=== PATIENT | male | born 1950 | race Caucasian/White ===

== ENCOUNTER → 2021-02-05 | Outpatient (CLI) | payer OTHER ==
[~2021-02-05] MED LIST: ASPI81CH33 PO; B-12100020 PO; B-12100T2 PO; D31000TA PO; ECOT81TA5 PO; ENTR1TAB PO; FERR32TA PO; FISH1000 PO; IRON65TA2 PO; META0.52 PO; METO1TAB7 PO; METO200T28 PO; QC F0.52 PO; ROSU40TA4 PO; TEGR1TAB PO; WARF-22 PO; WARF-23 PO
== END ==
LOC: M LABSMTC 09:33
PROVIDERS: ATTEND Anesthesiology
DX: Z01.812 Encounter for preprocedural laboratory examination (principal); Z20.822 Contact with and (suspected) exposure to COVID-19

== ENCOUNTER 2021-02-10 08:58 | Day surgery (SDC) | payer OTHER ==
[~2021-02-10] VITALS: Ht 172.7 cm; Wt 81.6 kg
[~2021-02-10 08:58] MED LIST changes: +NS 1,000 ML IV ONE
[2021-02-10] MEDS ORDERED: propofoL 500 MG/50 ML VIAL As Ordered ONE (09:41)
[2021-02-10] MEDS ORDERED: LIDOCAINE 2% 100MG/5ML SDV (FOR ANES.) As Ordered ONE (09:41)
--- NOTE | 2021-02-10 10:01 | ROOR ---
Patient Name: Juan C Wagoner Procedure Date: 02/10/2021 9:38 AM Date of : 1950 Age: 71 Room: [facility] Gender: Male Note Status: Finalized Procedure: Total Colonoscopy to Cecum Indications: Screening for colorectal malignant neoplasm Providers: Vishal Schaffer MD Referring MD: Romero Salguero MD Requesting Provider: Medicines: Monitored Anesthesia Care Complications: No immediate complications. Procedure: Pre-Anesthesia Assessment: - The heart rate, respiratory rate, oxygen saturations, blood pressure, adequacy of pulmonary ventilation, and response to care were monitored throughout the procedure. The Colonoscope was introduced through the anus and advanced to the cecum, identified by appendiceal orifice and ileocecal valve. The colonoscopy was performed without difficulty. The patient tolerated the procedure well. The quality of the bowel preparation was good. Findings: The perianal and digital rectal examinations were normal. Non-bleeding internal hemorrhoids were found during retroflexion. The hemorrhoids were small and Grade I (internal hemorrhoids that do not prolapse). Scattered small-mouthed diverticula were found in the recto-sigmoid colon, sigmoid colon and descending colon. The exam was otherwise without abnormality on direct and retroflexion views. Impression: - Non-bleeding internal hemorrhoids. - Diverticulosis in the recto-sigmoid colon, in the sigmoid colon and in the descending colon. - The examination was otherwise normal on direct and retroflexion views. - No specimens collected. - The exam was otherwise normal to the cecum. Recommendation: - Patient has a contact number available for emergencies. The signs and symptoms of potential delayed complications were discussed with the patient. Return to normal activities tomorrow. Written discharge instructions were provided to the patient. - High fiber diet. - Discharge patient to home. - Continue present medications. - Repeat colonoscopy is not recommended due to current age (66 years or older) for screening purposes. - Return to referring physician. - The findings and recommendations were discussed with the patient. Procedure Code(s): --- Professional --- 75873, Colonoscopy, flexible; diagnostic, including collection of specimen(s) by brushing or washing, when performed (separate procedure) Diagnosis Code(s): --- Professional --- Z12.11, Encounter for screening for malignant neoplasm of colon K64.0, First degree hemorrhoids K57.30, Diverticulosis of large intestine without perforation or abscess without bleeding CPT copyright 2019 [employer]. All rights reserved. The codes documented in this report are preliminary and upon unclaimed property officer review may be revised to meet current compliance requirements. Vishal Schaffer MD Vishal Schaffer MD 02/10/2021 10:00:53 AM Electronically signed by Vishal Schaffer MD Number of Addenda: 0 Note Initiated On: 02/10/2021 9:38 AM Estimated Blood Loss: Estimated blood loss: none.
[2021-02-10 10:20] VITALS: BP 114/61
== END 2021-02-10 10:32 | disposition home or self-care (01) ==
LOC: M OPP 08:58
PROVIDERS: ATTEND Internal Medicine Gastroenterology
DX: Z12.11 Encounter for screening for malignant neoplasm of colon (principal); K57.30 Diverticulosis of large intestine without perforation or abscess without bleeding; K64.0 First degree hemorrhoids; Z95.0 Presence of cardiac pacemaker; Z79.82 Long term (current) use of aspirin; Z79.01 Long term (current) use of anticoagulants; Z79.899 Other long term (current) drug therapy; Z87.891 Personal history of nicotine dependence

== ENCOUNTER 2021-08-07 07:23 | Inpatient (IN) | payer OTHER ==
[~2021-08-07] VITALS: Ht 175.3 cm; Wt 78.6 kg
[~2021-08-07 07:23] MED LIST changes: -NS 1,000 ML IV ONE
--- NOTE | 2021-08-07 11:39 | REP ---
INDICATION: contipation. COMPARISON: None. TECHNIQUE: Three views including upright chest radiograph. FINDINGS: Upright chest radiograph shows a unipolar pacemaker via the left side. Cardiomegaly is observed. There is a granulomatous calcification in the left upper perihilar region adjacent to the power plant for the pacemaker. Pulmonary vasculature is not increased. There is no evidence of pleural effusion, infiltrate, or free subdiaphragmatic air. Old post traumatic deformity is seen in the right clavicle. Supine and erect views of the abdomen show a normal bowel gas pattern. There is a minimal amount of air and stool in the proximal colon. There is no radiographic evidence of obstipation. No air-fluid level is seen. Psoas margins and flank stripes appear to be intact. Some vascular calcification is observed in the pelvis and inguinal regions. IMPRESSION: Cardiomegaly with pacemaker. Vascular calcification in the abdomen. Normal bowel gas pattern. <Electronically signed by Jacques Saldana > 08/07/21 2039
[2021-08-07 11:48] LABS: BASO # 0.1 10^3/uL (0.0-0.2); BASO % 0.7 % (0.0-1.0); EOS # 0.1 10^3/uL (0.0-0.5); EOS % 0.6 % (0.0-3.0); HEMATOCRIT 51.1 % (42.0-52.0); HEMOGLOBIN 16.6 g/dl (13.5-17.5); LYMPH # 2.7 10^3/uL (1.5-5.0); LYMPH % 30.5 % (24.0-44.0); MEAN CORPUSCULAR HEMOGLOBIN 33.6 pg (27.0-33.0); MEAN CORPUSCULAR HGB CONC 32.5 g/dl (32.0-36.5); MEAN CORPUSCULAR VOLUME 103.4 fl (80.0-96.0); MONO # 0.9 10^3/uL (0.0-0.8); MONO % 10.5 % (2.0-8.0); NEUTROPHILS # 5.1 10^3/uL (1.5-8.5); NEUTROPHILS % 57.5 % (36.0-66.0); PLATELET COUNT, AUTOMATED 136 10^3/uL (150-450); RED BLOOD COUNT 4.94 10^6/uL (4.30-6.10); WHITE BLOOD COUNT 8.8 10^3/uL (4.0-10.0)
[2021-08-07 12:17] LABS: ALBUMIN 3.5 GM/DL (3.2-5.2); BILIRUBIN,DIRECT 0.3 MG/DL (0.0-0.2); BILIRUBIN,TOTAL 0.7 MG/DL (0.2-1.0); CK-MB VALUE MASS 4.9 NG/ML (<3.6); MB/CK RELATIVE INDEX 2.38 (< OR =4); TOTAL PROTEIN 6.8 GM/DL (6.4-8.2); TROPONIN I 0.23 NG/ML (< 0.10)
[2021-08-07] MEDS ORDERED: ISOVUE-370 76% 100ML VIAL As Ordered ONE (12:33)
--- NOTE | 2021-08-07 13:10 | REP ---
INDICATION: dyspnea. COMPARISON: None. TECHNIQUE: Contrast dose: 100 ML of Isovue [address] technique: Helical scanning is acquired and overlapping 1.5 mm and contiguous 3 mm axial images are reformatted. In addition, maximum intensity projection and multiplanar re-formation images are generated in sagittal and coronal imaging projections. FINDINGS: There is good opacification in the pulmonary arterial tree. There is 1 tiny intraluminal filling defect in the right lower lobe pulmonary artery, anterobasilar segment consistent with a single visible small pulmonary embolus. No other emboli seen. The right ventricle right atrium are dilated. The vena cava and hepatic veins are somewhat dilated and reflux with contrast opacified blood. These findings are consistent with significant right heart failure. There is relatively poor opacification of the aorta. No aneurysm is seen. There are small bilateral pleural effusions, right greater than left. The left ventricle and left atrium appear to be enlarged and there is extensive left coronary artery vascular calcification. There is some myocardial calcification at the left ventricular apex consistent with old myocardial infarction. A pacemaker is seen in the right heart view of the left side. There is no evidence of pericardial effusion. No hilar mass or adenopathy is seen. Lung window settings demonstrate a granulomatous calcification in the left upper lobe. No significant pulmonary nodule is seen. There is fissural thickening in the major fissures bilaterally. No infiltrate seen. In the upper abdomen, there are scattered granulomatous calcifications in the spleen. IMPRESSION: There is a single tiny filling defect in the right lower lobe pulmonary arterial tree consistent with a a tiny pulmonary embolus. Evidence of right heart failure with prominent inferior vena cava and, hepatic veins, and reflux of contrast opacified blood from the right atrium into the liver. Four-chamber cardiomegaly is observed. Small bilateral pleural effusions consistent with CHF. <Electronically signed by Jacques Saldana > 08/07/21 [id number]
--- NOTE | 2021-08-07 13:18 | REP ---
INDICATION: abd pain COMPARISON: None. TECHNIQUE: CT Scan of the abdomen and pelvis was performed with intravenous administration of 100 cc of Isovue 370, without oral contrast. Sagittal and coronal reconstruction images are performed. FINDINGS: Lung bases: There is cardiomegaly. There is a moderate right pleural effusion. There is a tiny left pleural effusion. Injected IV contrast is predominantly in the right side of the heart with reflux into the inferior vena cava and hepatic veins. Liver: No abnormality visualized. Gallbladder: Unremarkable. Spleen: Tiny calcified granulomas are seen scattered throughout the spleen. Adrenals: Normal. Pancreas: No abnormalities seen. 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 Otherwise no definite renal abnormality is seen bilaterally. Small and large bowel: Unremarkable. Free fluid: There is mild free fluid in the pelvis. Abdominal aorta: No aneurysm, injected intravenous contrast has not reached the abdominal aorta and therefore I cannot evaluate for dissection. Adenopathy: None. Appendix: Not inflamed. Osseous structures: There are mild degenerative changes of the spine. Pelvis: No mass. IMPRESSION: Cardiomegaly with moderate right pleural fluid and tiny amount of left pleural fluid. Injected IV contrast is predominantly in the right side of the heart with reflux into the inferior vena cava and hepatic veins, compatible with some degree of right heart failure. There is mild free fluid in the pelvis. Injected IV contrast has not significantly reach the abdominal aorta and therefore the CT of the abdomen and pelvis is somewhat limited. <Electronically signed by Rich Chávez > 08/07/21 [id number]
[2021-08-07 14:37] LABS: CK-MB VALUE MASS 4.9 NG/ML (<3.6); MB/CK RELATIVE INDEX 2.55 (< OR =4); TROPONIN I 0.22 NG/ML (< 0.10)
[2021-08-07] MEDS ORDERED: MAALOX 30 ML SUSP *UDC PO PRN (15:45)
[2021-08-07] MEDS ORDERED: MOM 30ML SUSPENSION UDC PO PRN (15:45)
[2021-08-07] MEDS ORDERED: ACETAMINOPHEN TAB 650MG DOSE (2X325MG) PO PRN (15:45)
[2021-08-07] MEDS ORDERED: COLA100C5 PO (15:47)
[2021-08-07] MEDS ORDERED: CARB400T4 PO (15:47)
[2021-08-07] MEDS ORDERED: B-12100021 PO (15:47)
[2021-08-07] MEDS ORDERED: SIME80CH6 PO (15:47)
[2021-08-07] MEDS ORDERED: D31000TA2 PO (15:47)
[2021-08-07] MEDS ORDERED: WARF-23 PO (15:47)
[2021-08-07] MEDS ORDERED: FISH1000 PO (15:47)
[2021-08-07] MEDS ORDERED: HOME MED LIST COMPLETE! XX SCH (15:50)
--- NOTE | 2021-08-07 16:00 | HPEPDOC ---
[facility] Medical History & Physical Date of Admission Aug 07, 2021 Date of Service: Aug 07, 2021 History and Physical Chief complaint: Who presented to the hospital. Reports of abdominal pain and constipation History of present illness: Patient is a 71-year-old male who presented to the emergency room with concerns of abdominal pain, constipation for the last few days. Patient reported that ever since his colonoscopy in March 2021. He has been experiencing intermittent abdominal discomfort. Today. Patient has reported some associated shortness of breath, which has been worsening over the last 2 weeks. He denies any chest pain or palpitations. Denies any significant cough. Denies any recent fevers, chills or lower extremity edema. Reports that his weight has been fairly consistent. Patient does report that he used to sleep and require however, he can lay flat. He does report waking up frequently at night because of shortness of breath. Patient denies any nausea, vomiting. Reports that earlier he was experiencing lower abdominal discomfort described as a pressure-like intensity, occurring intermittently and aggravated with food. No alleviating factors. Patient reports that his last bowel movement was this morning which was very small. Denies any urinary discomfort. Patient worked with appetite is fairly normal and his weight has been relatively consistent between 171 and 173 pounds. Patient reports that he has received a cardiac catheterization approximately 9 years ago and did not require any stenting. He has since received a nuclear stress test approximately 1 year ago at the [facility]. 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); on Coumadin Suspected Systolic CHF s/p AICD (Placed in 2017) HTN DLP Seizure disorder Past Surgical History: Left inguinal hernia repair 2 Allergies: See below Medications: See below Family History: - Reviewed and noncontributory Social History: - Denies the use of illicit drugs; patient reports that he quit smoking 27 years ago, was a smoker of 30 years at 1-2 PPD; patient reports social alcohol use - Patient has received both doses of Moderna Vaccine March - Denies recent travel or sick contacts - Lives with - 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; 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 Review of Systems: 10 point review of systems complete, all negative otherwise stated in HPI Physical exam: - Vitals: BP [115/84], HR [97], RR [18], Sat [100%RA], Temp [97.2F] - General: Lying in bed, No acute distress, Speaking in full sentences, AAOx3 - HEENT: NC, AT, PERRLA - CVS: RRR, +S1S2 - Lungs: Diminished lung sounds bilaterally, Faint crackles, No wheezing / rhonchi - Abdomen: Soft, Non-distended, Non-tender - Extremities: Trace LE edema, No calf tenderness - Neuro: No focal motor or sensory deficit - Skin: No visible rashes Labs: See below Imaging: CXR 08/07: Cardiomegaly with pacemaker. Vascular calcification in the abdomen. Normal bowel gas pattern. CT abdomen / pelvis 08/07: Cardiomegaly with moderate right pleural fluid and tiny amount of left pleural fluid. Injected IV contrast is predominantly in the right side of the heart with reflux into the inferior vena cava and hepatic veins, compatible with some d egree of right heart failure. There is mild free fluid in the pelvis. Injected IV contrast has not significantly reach the abdominal aorta and therefore the CT of the abdomen and pelvis is somewhat limited. CTA chest 08/07: There is a single tiny filling defect in the right lower lobe pulmonary arterial tree consistent with a tiny pulmonary embolus. Evidence of right heart failure with prominent inferior vena cava and, hepatic veins, and reflux of contrast opacified blood from the right atrium into the liver. Four-chamber cardiomegaly is observed. Small bilateral pleural effusions consistent with CHF. EKG: See below Assessment and Plan: Shortness of breath - likely 2/2 decompensated CHF - Patient presented to the ER with shortness of breath - Physical reveals diminished lung sounds at bilateral lower lung bases with faint crackles - Elevated BNP - Imaging noted above - Will check ECHO / Troponin trend / Telemetry - Strict ins/outs, Daily weights, Fluid restriction - Will start Furosemide 40 IV BID Tiny PE? - Currently patient denies any chest pain or palpitations - Saturating well on room air and 99% - Imaging noted above - Will check INR - Hypercoagubility workup pending - Patient is already on full anticoagulation with Coumadin CAD (Reported silent [place] ~26 years ago) - Patient currently denies any chest pain, palpitations, nausea or diaphoresis - Patient reported that he didnt require stenting in the past - Has received a cardiac catheterization approximately 9 years ago, no stenting was required - Nuclear stresses completed approximately one year ago was reported negative - EKG reviewed - Troponin slightly elevated; possibly 2/2 demand ischemia - Will follow troponin trend - c/w ASA and Rosuvastatin 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) - Will check INR - c/w Coumadin Suspected Systolic CHF - s/p AICD (Placed in 2018) - See above HTN - BP well controlled - Will hold Entresto for now (re: Starting diuresis) - c/w Metoprolol DLP - c/w Rosuvastatin and Cadott-3 fatty acids Seizure disorder - c/w Carbamazepine DVT prophylaxis - Will c/w Coumadin (Will check INR) Vital Signs Vital Signs Date Time Temp Pulse Resp B/P (MAP) Pulse Ox O2 Delivery O2 Flow Rate FiO2 08/07/21 12:48 97 18 115/84 (94) 100 Room Air 08/07/21 07:24 97.2 Laboratory Data Labs 24H Laboratory Tests 2 08/07/21 11:18: Immature Granulocyte % (Auto) 0.2, Neutrophils (%) (Auto) 57.5, Lymphocytes (%) (Auto) 30.5, Monocytes (%) (Auto) 10.5H, Eosinophils (%) (Auto) 0.6, Basophils (%) (Auto) 0.7, Neutrophils # (Auto) 5.1, Lymphocytes # (Auto) 2.7, Monocytes # (Auto) 0.9H, Eosinophils # (Auto) 0.1, Basophils # (Auto) 0.1, Nucleated Red Blood Cells % (auto) 0.0 08/07/21 11:29: Total Bilirubin 0.7, Direct Bilirubin 0.3H, Aspartate Amino Transf (AST/SGOT) 56H, Alanine Aminotransferase (ALT/SGPT) 58, Alkaline Phosphatase 95, Total Creatine Kinase 206, Creatine Kinase MB 4.9H, Creatine Kinase MB Relative Index 2.38, Troponin I 0.23H, Total Protein 6.8, Albumin 3.5, Albumin/Globulin Ratio 1.1, Lipase 85 08/07/21 11:38: POC Glucose (Misc Panel) 107H, POC Sodium (Misc Panel) 144, POC Potassium (Misc Panel) 4.5, POC Chloride (Misc Panel) 108, POC Total CO2 (Misc Panel) 21.0L, POC Blood Urea Nitrogen (Misc Panel 33H, POC Ionized Calcium (Misc Panel) 4.2L, POC Creatinine (Misc Panel) 1.1, POC Hematocrit (Misc Panel) 52.0H 08/07/21 13:51: Total Creatine Kinase 192, Creatine Kinase MB 4.9H, Creatine Kinase MB Relative Index 2.55, Troponin I 0.22H, AA-Hbv-I-Type Natriuretic Peptide 43856L 08/07/21 15:39: CBC/BMP Laboratory Tests 08/07/21 11:18 Home Medications Scheduled Aspirin (Ecotrin) 81 Mg Tablet.dr, 81 MG PO DAILY Carbamazepine (Carbamazepine ER) 400 Mg Tab.er.12h, 400 MG PO BID Cholecalciferol (Vitamin D3) (Vitamin D3) 1,000 Unit Tablet, 1,000 UNITS PO DAILY Cyanocobalamin (Vitamin B-12) (B-12) 1,000 Mcg Tablet, 1,000 MCG PO BID Docusate Sodium (Colace) 100 Mg Capsule, 100 MG PO QHS Metoprolol Succinate (Metoprolol Succinate) 200 Mg Tab.er.24h, 100 MG PO DAILY Cadott-3 Fatty Acids/Fish Oil (Fish Oil 1,000 mg Capsule) 1 Each Capsule, 2,000 MG PO QAM Cadott-3 Fatty Acids/Fish Oil (Fish Oil 1,000 mg Capsule) 1 Each Capsule, 1,000 MG PO QHS Psyllium Husk (Fiber) 0.52 Gm Capsule, 2 CAP PO BID Rosuvastatin Calcium (Rosuvastatin Calcium) 40 Mg Tablet, 40 MG PO QPM Sacubitril/Valsartan (Entresto 24 mg-26 mg Tablet) 1 Each Tablet, 1 TAB PO BID Simethicone (Simethicone) 80 Mg Tab.chew, 80 MG PO DAILY Warfarin Sodium (Warfarin Sodium) 5 Mg Tablet, 10 MG PO QPM Allergies Coded Allergies: No Known Allergies (Unverified , 02/03/21) EDILBERTO FISHER MD Aug 07, 2021 16:00
[2021-08-07 16:21] LABS: PROTHROMBIN TIME 55.5 SECONDS (12.7-14.5)
[2021-08-07 16:22] LABS: PARTIAL THROMBOPLASTIN TIME 64.1 SECONDS (25.9-37.0)
[2021-08-07 16:58] LABS: INR 6.31
[2021-08-07] MEDS: FUROSEMIDE 40MG/4ML VIAL (J1940) IV SCH (17:00)
[2021-08-07] MEDS ORDERED: WARFARIN SOD 5MG TAB PO SCH (17:00)
[2021-08-07 17:18] LABS: RSV AMPLIFICATION NEGATIVE (NEGATIVE)
[2021-08-07] MEDS ORDERED: PHYTONADIONE 2.5 MG **1/2 TAB PO ONE (17:35)
--- NOTE | 2021-08-07 18:59 | ECGEPIP ---
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
[2021-08-07 19:18] LABS: CK-MB VALUE MASS 4.9 NG/ML (<3.6); MB/CK RELATIVE INDEX 2.15 (< OR =4); TROPONIN I 0.23 NG/ML (< 0.10)
[2021-08-07] MEDS ORDERED: DOCUSATE SODIUM 100MG CAPSULE PO SCH (21:00)
[2021-08-08] MEDS: CYANOCOBALAMIN 500 MCG TAB PO SCH ×3 (00:11→20:02)
[2021-08-08] MEDS: ROSUVASTATIN 10 MG TAB (CRESTOR) PO SCH ×2 (00:11→20:03)
[2021-08-08] MEDS: DOCUSATE SODIUM 100MG CAPSULE PO SCH ×3 (00:11→20:03)
[2021-08-08] MEDS: carBAMazepine XR 200 MG TAB PO SCH ×3 (00:12→20:03)
[2021-08-08] MEDS: OMEGA-3 1000MG CAPSULE PO SCH ×3 (00:13→20:03)
[2021-08-08 01:50] LABS: CK-MB VALUE MASS 5.2 NG/ML (<3.6); MB/CK RELATIVE INDEX 1.9 (< OR =4); TROPONIN I 0.24 NG/ML (< 0.10)
[2021-08-08 04:00] VITALS: BP 121/87
[2021-08-08 05:32] LABS: BASO % 0.7 % (0.0-1.0); EOS # 0.1 10^3/uL (0.0-0.5); EOS % 1.4 % (0.0-3.0); HEMATOCRIT 45.2 % (42.0-52.0); HEMOGLOBIN 14.9 g/dl (13.5-17.5); LYMPH # 1.5 10^3/uL (1.5-5.0); LYMPH % 26.5 % (24.0-44.0); MEAN CORPUSCULAR HEMOGLOBIN 33.8 pg (27.0-33.0); MEAN CORPUSCULAR VOLUME 102.5 fl (80.0-96.0); MONO # 0.7 10^3/uL (0.0-0.8); MONO % 12.5 % (2.0-8.0); NEUTROPHILS # 3.4 10^3/uL (1.5-8.5); NEUTROPHILS % 58.4 % (36.0-66.0); PLATELET COUNT, AUTOMATED 117 10^3/uL (150-450); RED BLOOD COUNT 4.41 10^6/uL (4.30-6.10); WHITE BLOOD COUNT 5.8 10^3/uL (4.0-10.0)
[2021-08-08 05:34] LABS: INR 4.14; PROTHROMBIN TIME 40.3 SECONDS (12.7-14.5)
[2021-08-08 05:45] LABS: BLOOD UREA NITROGEN 32 MG/DL (7-18); CALCIUM LEVEL 8.7 MG/DL (8.8-10.2); CARBON DIOXIDE LEVEL 23 MEQ/L (21-32); CHLORIDE LEVEL 111 MEQ/L (98-107); CREATININE FOR GFR 1.13 MG/DL (0.70-1.30); GLOMERULAR FILTRATION RATE > 60.0 (>42); GLUCOSE, FASTING 92 MG/DL (70-100); MAGNESIUM LEVEL 2.1 MG/DL (1.8-2.4); POTASSIUM SERUM 4.5 MEQ/L (3.5-5.1); SODIUM LEVEL 143 MEQ/L (136-145)
[2021-08-08 08:00] VITALS: BP 108/71
[2021-08-08] MEDS: METOPROLOL SUCC (TopROL XL) 100MG *XL* TAB PO SCH (08:30)
[2021-08-08] MEDS: SIMETHICONE 80MG CHEW TAB PO SCH (08:31)
[2021-08-08] MEDS: VITAMIN D 1,000 INTERNATIONAL UNITS TABLET PO SCH (08:32)
[2021-08-08] MEDS: ASPIRIN 81MG ENTERIC TABLET PO SCH (08:32)
[2021-08-08] MEDS: FUROSEMIDE 40MG/4ML VIAL (J1940) IV SCH ×2 (08:32→16:58)
[2021-08-08] MEDS ORDERED: FLUBLOK(EGG FREE)(QUAD)INFLUENZA VACC 0.5ML SYRINGE 18YRS & OLDER IM ONE (09:00)
--- NOTE | 2021-08-08 10:17 | IPNPDOC ---
Text Note Date of Service The patient was seen on 08/08/21. NOTE Subjective: Patient is a 71-year-old male who presented to the emergency room with concerns of abdominal pain, constipation for the last few days. Patient reported that ever since his colonoscopy in March 2021. He has been experiencing intermittent abdominal discomfort. Today, patient has reported some associated shortness of breath, which has been worsening over the last 2 weeks. He denies any chest pain or palpitations. Denies any significant cough. Denies any recent fevers, chills or lower extremity edema. Reports that his weight has been fairly consistent. In the emergency room, patient was found to have imaging consistent with bilateral pleural effusions and vascular. Patient has been admitted to the hospital service for further evaluation and treatment of CHF. Patient was seen and examined at the bedside. Currently patient denies any chest pain, shortness of breath or palpitations. Denies any nausea, vomiting, abdominal pain or diarrhea. Yesterday. Patient did not receive any diuretics because of hold parameters given his blood pressure. Objective: Vitals (See below) General: Lying in bed, appears comfortable, AAOx3 HEENT: NC, AT CVS: +S1S2 Lungs: Diminished lung sounds at bases, faint crackles, no rhonchi or wheezing is appreciated Abdomen: Soft, nondistended, nontender Extremities: Trace pitting edema bilaterally Imaging: CXR 08/07: Cardiomegaly with pacemaker. Vascular calcification in the abdomen. Normal bowel gas pattern. CT abdomen / pelvis 08/07: Cardiomegaly with moderate right pleural fluid and tiny amount of left pleural fluid. Injected IV contrast is predominantly in the right side of the heart with reflux into the inferior vena cava and hepatic veins, compatible with some degree of right heart failure. There is mild free fluid in the pelvis. Injected IV contrast has not significantly reach the abdominal aorta and therefore the CT of the abdomen and pelvis is somewhat limited. CTA chest 08/07: There is a single tiny filling defect in the right lower lobe pulmonary arterial tree consistent with a tiny pulmonary embolus. Evidence of right heart failure with prominent inferior vena cava and, hepatic veins, and reflux of contrast opacified blood from the right atrium into the liver. Four-chamber cardiomegaly is observed. Small bilateral pleural effusions consistent with CHF. Assessment and Plan: Shortness of breath - likely 2/2 decompensated CHF - Patient presented to the ER with shortness of breath - Physical still reveals crackles - Elevated BNP - Imaging noted above - ECHO Pending - c/w Telemetry - c/w Strict ins/outs, Daily weights, Fluid restriction - c/w Furosemide 40 IV BID; hold parameters have been adjusted Tiny PE? - Currently patient denies any chest pain or palpitations - Saturating well on room air and 99% - Imaging noted above - Hypercoagubility workup pending - Patient is already on full anticoagulation with Coumadin as an outpatient; INR supra-therapeutic Supra-therapeutic INR - s/p Vitamin K 2.5 mg - INR improving - Will continue to hold Coumadin - Will likely resume tomorrow CAD (Reported silent [place] ~26 years ago) - Patient currently denies any chest pain, palpitations, nausea or diaphoresis - Reported no prior stenting in the past - Has received a cardiac catheterization approximately 9 years ago, no stenting was required - Nuclear stresses completed approximately one year ago was reported negative - EKG reviewed - Troponin slightly elevated; possibly 2/2 demand ischemia - remains stable - c/w ASA and Rosuvastatin 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9 85 18 97 Room Air I&O- Last 24 Hours up to 6 AM 08/08/21 06:00 Intake Total 120 ml Output Total 1 ml Balance 119 ml EDILBERTO FISHER MD Aug 08, 2021 10:17
[2021-08-08 12:00] VITALS: BP 123/77
[2021-08-08 16:00] VITALS: BP 122/81
[2021-08-08 20:00] VITALS: BP 103/69
[2021-08-09] VITALS: BP 104/72
[2021-08-09 04:00] VITALS: BP 114/76
[2021-08-09 04:42] LABS: BASO # 0.1 10^3/uL (0.0-0.2); EOS # 0.1 10^3/uL (0.0-0.5); EOS % 2.6 % (0.0-3.0); HEMATOCRIT 41.5 % (42.0-52.0); HEMOGLOBIN 13.9 g/dl (13.5-17.5); LYMPH # 1.6 10^3/uL (1.5-5.0); LYMPH % 30.8 % (24.0-44.0); MEAN CORPUSCULAR HEMOGLOBIN 33.3 pg (27.0-33.0); MEAN CORPUSCULAR HGB CONC 33.5 g/dl (32.0-36.5); MEAN CORPUSCULAR VOLUME 99.5 fl (80.0-96.0); MONO # 0.6 10^3/uL (0.0-0.8); MONO % 11.1 % (2.0-8.0); NEUTROPHILS # 2.7 10^3/uL (1.5-8.5); NEUTROPHILS % 54.1 % (36.0-66.0); PLATELET COUNT, AUTOMATED 102 10^3/uL (150-450); RED BLOOD COUNT 4.17 10^6/uL (4.30-6.10)
[2021-08-09 04:46] LABS: INR 1.57; PROTHROMBIN TIME 19.2 SECONDS (12.7-14.5)
[2021-08-09 05:04] LABS: BLOOD UREA NITROGEN 29 MG/DL (7-18); CALCIUM LEVEL 8.3 MG/DL (8.8-10.2); CARBON DIOXIDE LEVEL 25 MEQ/L (21-32); CHLORIDE LEVEL 115 MEQ/L (98-107); CREATININE FOR GFR 0.86 MG/DL (0.70-1.30); GLOMERULAR FILTRATION RATE > 60.0 (>42); GLUCOSE, FASTING 88 MG/DL (70-100); MAGNESIUM LEVEL 1.8 MG/DL (1.8-2.4); POTASSIUM SERUM 3.9 MEQ/L (3.5-5.1); SODIUM LEVEL 148 MEQ/L (136-145)
[2021-08-09] MEDS ORDERED: FURO20TA2 PO (07:50)
[2021-08-09 08:00] VITALS: BP 117/81
--- NOTE | 2021-08-09 09:42 | DS.PDOC ---
Discharge Summary General Date of Admission Aug 07, 2021 at 15:44 Date of Discharge 08/09/2021 Discharge Summary PROCEDURES PERFORMED DURING STAY: [None]. ADMITTING DIAGNOSES / DISCHARGE DIAGNOSES: s/p Shortness of breath - likely 2/2 decompensated CHF Tiny PE; less likely s/p Supra-therapeutic INR CAD (Reported silent MO ~26 years ago) 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) Suspected Systolic CHF HTN DLP Seizure disorder DVT prophylaxis COMPLICATIONS/CHIEF COMPLAINT: SOB / Abdominal bloating HISTORY OF PRESENT ILLNESS: s/p Shortness of breath - likely 2/2 decompensated CHF - Patient has reported improvement of her shortness of breath/abdominal bloating - Physical with resolution of crackles - Elevated BNP - Imaging noted above - ECHO complete; report pending - c/w Telemetry - c/w Strict ins/outs, Daily weights, Fluid restriction - Will discharge home with low-dose diuretics - Patient has been advised to 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 within the next 7 days Tiny PE; less likely - Denies any chest pain, shortness breath, palpitations - Again is saturating well on room air at 99% - Imaging noted above - Hypercoagubility workup pending - c/w Coumadin - Will have outpatient follow-up with primary care provider within the next 7 days s/p Supra-therapeutic INR - s/p Vitamin K 2.5 mg - Will have outpatient INR completed in the next 2-3 days - Will resume Coumadin CAD (Reported silent MO ~26 years ago) - Patient currently denies any chest pain, palpitations, nausea or diaphoresis - Reported no prior stenting in the past - Has received a cardiac catheterization approximately 9 years ago, no stenting was required - Nuclear stresses completed approximately one year ago was reported negative - EKG reviewed - Troponin slightly elevated; possibly 2/2 demand ischemia - remains stable - c/w ASA and Rosuvastatin 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) - Will outpatient follow-up with primary care provider for repeat INR - Will resume Coumadin Suspected Systolic CHF - s/p AICD (Placed in 2018) - See above HTN - BP well controlled - Will resume Entresto on discharge - c/w Metoprolol DLP - c/w Rosuvastatin and [place]-3 fatty acids Seizure disorder - c/w Carbamazepine DVT prophylaxis - Will resume Coumadin HOSPITAL COURSE: Patient is a 71-year-old male who presented to the emergency room with concerns of abdominal pain, constipation for the last few days. Patient reported that ever since his colonoscopy in March 2021. He has been experiencing intermittent abdominal discomfort. Today, patient has reported some associated shortness of breath, which has been worsening over the last 2 weeks. He denies any chest pain or palpitations. Denies any significant cough. Denies any recent fevers, chills or lower extremity edema. Reports that his weight has been fairly consistent. In the emergency room, patient was found to have imaging consistent with bilateral pleural effusions and vascular. Patient has been admitted to the hospital service for further evaluation and treatment of CHF. DISCHARGE MEDICATIONS: Please see below. ALLERGIES: Please see below. PHYSICAL EXAMINATION ON DISCHARGE: Vitals (See below) General: Patient is sitting up in bed watching television appears to be comfortable, not in any acute distress. He is awake, alert, oriented 3 HEENT: Normocephalic and atraumatic CVS: +S1S2 Lungs: Air entry appears to be fair bilaterally without any significant crackles or wheezing Abdomen: Abdomen remains soft without any appreciated distention or tenderness Extremities: Lower show a do not reveal any significant edema LABORATORY DATA: Please see below. IMAGING: CXR 08/07: Cardiomegaly with pacemaker. Vascular calcification in the abdomen. Normal bowel gas pattern. CT abdomen / pelvis 08/07: Cardiomegaly with moderate right pleural fluid and tiny amount of left pleural fluid. Injected IV contrast is predominantly in the right side of the heart with reflux into the inferior vena cava and hepatic veins, compatible with some degree of right heart failure. There is mild free fluid in the pelvis. Injected IV contrast has not significantly reach the abdominal aorta and therefore the CT of the abdomen and pelvis is somewhat limited. CTA chest 08/07: There is a single tiny filling defect in the right lower lobe pulmonary arterial tree consistent with a tiny pulmonary embolus. Evidence of right heart failure with prominent inferior vena cava and, hepatic veins, and reflux of contrast opacified blood from the right atrium into the liver. Four-chamber cardiomegaly is observed. Small bilateral pleural effusions consistent with CHF. ACTIVITY: [As tolerated]. DISCHARGE PLAN: Follow-up with primary care provider, and cardiology within the next 7 days Remain compliant with treatment plan and medications Return to the ER if you experience any problems DISPOSITION: Home DISCHARGE CONDITION: [Stable]. TIME SPENT ON DISCHARGE: 35 minutes. Vital Signs/I&Os Vital Signs Date Time Temp Pulse Resp B/P (MAP) Pulse Ox O2 Delivery O2 Flow Rate FiO2 08/09/21 08:00 98.2 105 17 117/81 (93) 98 Room Air I&O- Last 24 Hours up to 6 AM 08/09/21 05:59 Intake Total 760 ml Output Total 2300 ml Balance -1540 ml Laboratory Data Labs 24H Laboratory Tests 2 08/09/21 04:17: Immature Granulocyte % (Auto) 0.4, Neutrophils (%) (Auto) 54.1, Lymphocytes (%) (Auto) 30.8, Monocytes (%) (Auto) 11.1H, Eosinophils (%) (Auto) 2.6, Basophils (%) (Auto) 1.0, Neutrophils # (Auto) 2.7, Lymphocytes # (Auto) 1.6, Monocytes # (Auto) 0.6, Eosinophils # (Auto) 0.1, Basophils # (Auto) 0.1, Nucleated Red Blood Cells % (auto) 0.0, Prothrombin Time 19.2H, Prothromb Time International Ratio 1.57, Anion Gap 8, Glomerular Filtration Rate > 60.0, Calcium Level 8.3L, Magnesium Level 1.8 CBC/BMP Laboratory Tests 08/09/21 04:17 Discharge Medications Scheduled Aspirin (Ecotrin) 81 Mg Tablet.dr, 81 MG PO DAILY, (Reported) Carbamazepine (Carbamazepine ER) 400 Mg Tab.er.12h, 400 MG PO BID, (Reported) Cholecalciferol (Vitamin D3) (Vitamin D3) 1,000 Unit Tablet, 1,000 UNITS PO D AILY, (Reported) Cyanocobalamin (Vitamin B-12) (B-12) 1,000 Mcg Tablet, 1,000 MCG PO BID, (Reported) Docusate Sodium (Colace) 100 Mg Capsule, 100 MG PO QHS, (Reported) Furosemide (Furosemide) 20 Mg Tablet, 1 TAB PO DAILY Metoprolol Succinate (Metoprolol Succinate) 200 Mg Tab.er.24h, 100 MG PO DAILY, (Reported) [place]-3 Fatty Acids/Fish Oil (Fish Oil 1,000 mg Capsule) 1 Each Capsule, 2,000 MG PO QAM, (Reported) [place]-3 Fatty Acids/Fish Oil (Fish Oil 1,000 mg Capsule) 1 Each Capsule, 1,000 MG PO QHS, (Reported) Psyllium Husk (Fiber) 0.52 Gm Capsule, 2 CAP PO BID, (Reported) Rosuvastatin Calcium (Rosuvastatin Calcium) 40 Mg Tablet, 40 MG PO QPM, (Reported) Sacubitril/Valsartan (Entresto 24 mg-26 mg Tablet) 1 Each Tablet, 1 TAB PO BID, (Reported) Simethicone (Simethicone) 80 Mg Tab.chew, 80 MG PO DAILY, (Reported) Warfarin Sodium (Warfarin Sodium) 5 Mg Tablet, 10 MG PO QPM, (Reported) Allergies Coded Allergies: No Known Allergies (Unverified , 02/03/21) EDILBERTO FISHER MD Aug 09, 2021 09:42
[2021-08-09 10:06] VITALS: BP 117/81
[2021-08-09] MEDS: ASPIRIN 81MG ENTERIC TABLET PO SCH (10:06)
[2021-08-09] MEDS: VITAMIN D 1,000 INTERNATIONAL UNITS TABLET PO SCH (10:06)
[2021-08-09] MEDS: DOCUSATE SODIUM 100MG CAPSULE PO SCH (10:06)
[2021-08-09] MEDS: SIMETHICONE 80MG CHEW TAB PO SCH (10:06)
[2021-08-09] MEDS: METOPROLOL SUCC (TopROL XL) 100MG *XL* TAB PO SCH (10:06)
[2021-08-09] MEDS: CYANOCOBALAMIN 500 MCG TAB PO SCH (10:06)
[2021-08-09] MEDS: carBAMazepine XR 200 MG TAB PO SCH (10:07)
[2021-08-09] MEDS: OMEGA-3 1000MG CAPSULE PO SCH (10:07)
--- NOTE | 2021-08-09 11:27 | ECHO ---
ECHOCARDIOGRAM DATE OF PROCEDURE: 08/08/2021 Age: 71 Gender: Male Height: 170 cm Weight: 81 kg PATIENT LOCATION: Room 3228 REFERRING PHYSICIAN: Dr. Jazmin Mo REASON FOR TESTING: Congestive heart failure MEASUREMENTS: IVS 0.8 cm LV 7.4 cm LVPW 0.8 cm LA 5.3 cm Aorta 3.2 cm IVC 2.6 cm DOPPLER MEASUREMENT Peak velocity across the aortic valve 1.0 m/s Peak velocity across the LVOT 0.34 m/s Mitral E 1.0 Maximum tricuspid valve velocity 3.4 m/sec 2D COMMENTS: 1. Markedly dilated left ventricle with severe global hypokinesis and seriously depressed global left ventricular systolic function. The estimated left ventricular systolic ejection fraction is 15-20%. 2. Moderately enlarged left atrium. The right atrium appeared to be enlarged. Normal right ventricle. 3. The atrial septum appeared to be normal without evidence of defect or shunt. 4. Normal aortic root. 5. No pericardial effusion seen. 6. Mildly calcified aortic valve with normal leaflet excursion. Mildly calcified mitral annulus with normal anterior mitral valve leaflet motion. Normal tricuspid valve and pulmonic valve. The proximal pulmonary artery branches were not well visualized. 7. The inferior vena cava was dilated, central venous pressure is most likely elevated. 8. Pacemaker wire artifacts noted. DOPPLER: It detected mild aortic regurgitation, moderately severe mitral regurgitation, moderate tricuspid regurgitation. The calculated pulmonary artery systolic pressure varies between 40-50 mmHg. Assessment of the left ventricular diastolic function was limited. IMPRESSION: 1. Severe global left ventricular systolic dysfunction with global hypokinesis and markedly enlarged left ventricle. 2. Aortic valve sclerosis with mild aortic regurgitation, but no aortic stenosis. 3. Mitral annulus calcification with a moderately enlarged left atrium and moderately severe mitral regurgitation. 4. Moderate tricuspid regurgitation with moderate pulmonary hypertension and dilated right atrium. 5. Pacemaker wire artifacts noted. 6. Global longitudinal strain was calculated at -4.5%.
[2021-08-09] MEDS ORDERED: WARFARIN SOD 5MG TAB PO ONE (17:00)
[2021-08-10] MEDS ORDERED: FURO20TA2 PO (10:20)
== END 2021-08-09 12:45 | disposition home or self-care (01) | DRG 293 ==
LOC: M ED 07:23 → M ED INP 15:44 → M PCU 08-08 03:37
PROVIDERS: ADMIT Internal Medicine; ATTEND Internal Medicine
DX: I11.0 Hypertensive heart disease with heart failure (principal); I50.23 Acute on chronic systolic (congestive) heart failure; G40.909 Epilepsy, unspecified, not intractable, without status epilepticus; I25.10 Atherosclerotic heart disease of native coronary artery without angina pectoris; I25.2 Old myocardial infarction; Z79.82 Long term (current) use of aspirin; Z79.899 Other long term (current) drug therapy

== ENCOUNTER → 2021-08-14 | Outpatient (CLI) | payer OTHER ==
[~2021-08-14] MED LIST changes: +B-12100021 PO; +CARB400T4 PO; +COLA100C5 PO; +D31000TA2 PO; +FURO20TA2 PO; +SIME80CH6 PO
[2021-08-14 13:59] LABS: INR 2.46; PROTHROMBIN TIME 27.1 SECONDS (12.7-14.5)
== END ==
LOC: M PLALAB 11:02
PROVIDERS: ATTEND Internal Medicine
DX: Z79.01 Long term (current) use of anticoagulants (principal)

== ENCOUNTER 2021-12-01 06:40 | Emergency (ER) | payer OTHER ==
[~2021-12-01] VITALS: Ht 172.7 cm; Wt 78.1 kg
[2021-12-01] MEDS ORDERED: POTA1TAB23 (07:52)
[2021-12-01 07:53] LABS: BASO % 0.5 % (0.0-1.0); EOS # 0.1 10^3/uL (0.0-0.5); EOS % 1.7 % (0.0-3.0); HEMATOCRIT 41.7 % (42.0-52.0); LYMPH # 0.9 10^3/uL (1.5-5.0); LYMPH % 16.4 % (24.0-44.0); MEAN CORPUSCULAR HEMOGLOBIN 32.9 pg (27.0-33.0); MEAN CORPUSCULAR HGB CONC 33.6 g/dl (32.0-36.5); MEAN CORPUSCULAR VOLUME 98.1 fl (80.0-96.0); MONO # 0.6 10^3/uL (0.0-0.8); MONO % 10.8 % (2.0-8.0); NEUTROPHILS % 70.4 % (36.0-66.0); PLATELET COUNT, AUTOMATED 122 10^3/uL (150-450); RED BLOOD COUNT 4.25 10^6/uL (4.30-6.10); WHITE BLOOD COUNT 5.7 10^3/uL (4.0-10.0)
--- NOTE | 2021-12-01 07:53 | REP ---
INDICATION: CHEST PAIN COMPARISON: 08/07/2021 TECHNIQUE: Portable AP view of the chest FINDINGS: The mediastinum and cardiac silhouette are stable and within normal limits for portable technique. The lung roy are clear without acute consolidation, effusion, or pneumothorax. Skeletal structures are intact. IMPRESSION: No acute cardiopulmonary process appreciated. <Electronically signed by Rodrigo Zavala > 12/01/21 0749
[2021-12-01 08:15] LABS: RSV AMPLIFICATION NEGATIVE (NEGATIVE)
[2021-12-01 08:38] LABS: INR 2.47; PROTHROMBIN TIME 27.1 SECONDS (12.7-14.5)
[2021-12-01 08:39] LABS: PARTIAL THROMBOPLASTIN TIME 53.5 SECONDS (25.9-37.0)
[2021-12-01 09:39] LABS: ALBUMIN 3.5 GM/DL (3.2-5.2); ALT/SGPT 22 U/L (12-78); BILIRUBIN,DIRECT 0.2 MG/DL (0.0-0.2); BILIRUBIN,TOTAL 0.3 MG/DL (0.2-1.0); BLOOD UREA NITROGEN 15 MG/DL (7-18); CALCIUM LEVEL 8.6 MG/DL (8.8-10.2); CARBON DIOXIDE LEVEL 25 MEQ/L (21-32); CHLORIDE LEVEL 110 MEQ/L (98-107); CREATININE FOR GFR 0.64 MG/DL (0.70-1.30); FREE T4 0.85 NG/DL (0.76-1.46); GLOMERULAR FILTRATION RATE > 60.0 (>42); GLUCOSE, FASTING 109 MG/DL (70-100); LIPASE 71 U/L (73-393); MAGNESIUM LEVEL 2.1 MG/DL (1.8-2.4); NT-PRO BNP 1195 PG/ML (<125); POTASSIUM SERUM 4.2 MEQ/L (3.5-5.1); SODIUM LEVEL 142 MEQ/L (136-145); TOTAL PROTEIN 6.9 GM/DL (6.4-8.2)
[2021-12-01] MEDS ORDERED: D5W/0.45% SODIUM CHLORIDE 1,000 ML IV ONE (11:50)
--- NOTE | 2021-12-01 18:32 | ECGEPIP ---
[facility] - ED Test Date: 2021-12-01 Pat Name: JAYME OSBORN Department: Room: - Gender: Male Clinical Admissions Manager: LR : 1950 Requested By: Obed Maya Order Number: [id number] Reading MD: Jodi Sal Measurements Intervals [place] Rate: 59 P: 74 FL: 258 QRS: -33 QRSD: 160 T: 182 QT: 428 QTc: 423 Interpretive Statements Sinus bradycardia with 1st degree AV block Left axis deviation Left bundle branch block decreased rate 12/01/21 Electronically Signed on 12-01-2021 18:32:35 EST by Jodi Sal
--- NOTE | 2021-12-01 18:32 | ECGEPIP ---
[facility] - ED Test Date: 2021-12-01 Pat Name: JAYME OSBORN Department: Room: - Gender: Male [place] Insulator: Manny SEARS : 1950 Requested By: BRITTANI Bean Order Number: [id number] Reading MD: Jodi Sal Measurements Intervals [place] Rate: 78 P: 71 [place]: 236 QRS: -30 QRSD: 166 T: 102 QT: 410 QTc: 467 Interpretive Statements Sinus rhythm with 1st degree AV block Left axis deviation Left bundle branch block decreased rate 08/07/21 Electronically Signed on 12-01-2021 18:32:16 EST by Jodi Sal
[2021-12-01 19:04] VITALS: BP 137/76
== END 2021-12-01 19:06 | disposition short-term general hospital (02) ==
LOC: M ED 06:40
DX: I47.2 Ventricular tachycardia (principal); I25.2 Old myocardial infarction; I11.0 Hypertensive heart disease with heart failure; I50.9 Heart failure, unspecified; Z79.82 Long term (current) use of aspirin; Z79.01 Long term (current) use of anticoagulants; Z79.899 Other long term (current) drug therapy; Z87.891 Personal history of nicotine dependence; Z95.810 Presence of automatic (implantable) cardiac defibrillator